=== PATIENT | female | born 1955 | race Caucasian/White ===

== ENCOUNTER 2018-07-11 15:19 | Emergency (ER) | payer OTHER ==
[2018-07-11] MEDS: OXYCODONE/ACETAMINOPHEN (5/325) TAB PO (19:19)
== END 2018-07-11 20:26 | disposition home or self-care (01) ==
LOC: FTE 15:19
DX: S90.32XA Contusion of left foot, initial encounter (principal); I10 Essential (primary) hypertension; J44.9 Chronic obstructive pulmonary disease, unspecified; E03.9 Hypothyroidism, unspecified; X50.1XXA Overexertion from prolonged static or awkward postures, initial encounter; Y92.9 Unspecified place or not applicable
CPT/HCPCS: 73610; 73630-LT; 99283-25